=== PATIENT | male | born 1945 ===

== ENCOUNTER 2024-02-04 16:14 | Emergency (ER) | payer MEDICARE ==
[~2024-02-04] VITALS: Ht 182.9 cm; Wt 86.2 kg
[~2024-02-04 16:14] MED LIST: TAMS.4ER PO
[2024-02-04 16:45] VITALS: BP 128/68
== END 2024-02-04 17:14 | disposition home or self-care (01) ==
LOC: ER 16:14
DX: N39.0 Urinary tract infection, site not specified (principal); E86.0 Dehydration; Z96.0 Presence of urogenital implants; Z79.899 Other long term (current) drug therapy
CPT/HCPCS: 51798; 99283-25

== ENCOUNTER 2024-10-14 19:51 | Emergency (ER) | payer MEDICARE ==
[~2024-10-14] VITALS: Ht 182.9 cm; Wt 83.9 kg
[2024-10-14] MEDS ORDERED: DORZOLAMIDE-TIM10 ML BOTHEYES (23:36)
[2024-10-14] MEDS ORDERED: LATANOPROST2.5 M3 BOTHEYES (23:36)
[2024-10-14] MEDS ORDERED: ANASPAZ0.125 MG SL (23:37)
[2024-10-15 02:56] LABS: BASOPHILS ABSOLUTE AUTO 0.02 K/mm3 (0.00-0.23); BASOPHILS PERCENT AUTO 0 % (0-2); EOSINOPHILS ABSOLUTE AUTO 0.01 K/mm3 (0.00-0.68); EOSINOPHILS PERCENT AUTO 0 % (0-6); Hematocrit 33.4 % (37.0-53.0); Hemoglobin 11.6 g/dL (13.5-17.5); IMMATURE GRAN ABSOLUTE AUTO 0.03 K/mm3 (0.00-0.10); IMMATURE GRAN PERCENT AUTO 0 % (0-1); LYMPHOCYTES ABSOLUTE AUTO 0.75 K/mm3 (0.84-5.20); LYMPHOCYTES PERCENT AUTO 11 % (21-46); MONOCYTES ABSOLUTE AUTO 0.73 K/mm3 (0.16-1.47); MONOCYTES PERCENT AUTO 11 % (4-13); Mean Corpuscular HGB 30.7 pg (26.0-34.0); Mean Corpuscular HGB Conc 34.7 g/dL (31.5-36.5); Mean Corpuscular Volume 88 fL (80-100); Mean Platelet Volume 9.7 fL (9.1-12.4); NEUTROPHILS PERCENT AUTO 77 % (41-73); Platelet Count 176 K/mm3 (150-400); RDW Standard Deviation 45.6 fL (35.1-46.3); Red Blood Cell Count 3.78 M/mm3 (4.30-5.90); White Blood Cell Count 6.74 K/mm3 (4.00-11.30)
[2024-10-15 03:17] LABS: Albumin/Globulin Ratio 0.9 (0.8-1.8); Bilirubin, Total 0.3 mg/dL (0.1-1.0); Bun/Creatinine Ratio 20.7 (12.0-20.0); Calcium, Blood 8.4 mg/dL (8.5-10.1); Creatinine, Blood 1.16 mg/dL (0.60-1.20); Globulin, Blood 3.5 g/dL (2.2-4.0); Potassium, Blood 3.8 mmol/L (3.5-5.5); Total Protein, Blood 6.5 g/dL (6.4-8.2)
[2024-10-15 05:27] VITALS: BP 136/82
== END 2024-10-15 05:32 | disposition home or self-care (01) ==
LOC: ER 19:51
PROVIDERS: Emergency Medicine
DX: T83.091A Other mechanical complication of indwelling urethral catheter, initial encounter (principal); Z79.899 Other long term (current) drug therapy
CPT/HCPCS: 51798; 74177; 76857; 80053; 85025; 99284-25; Q9967

== ENCOUNTER 2025-07-30 19:47 | Emergency (ER) | payer MEDICARE ==
[~2025-07-30] VITALS: Ht 182.9 cm; Wt 86.2 kg
[~2025-07-30 19:47] MED LIST changes: +ANASPAZ0.125 MG SL; +DORZOLAMIDE-TIM10 ML BOTHEYES; +LATANOPROST2.5 M3 BOTHEYES
[2025-07-30 21:24] LABS: BASOPHILS ABSOLUTE AUTO 0.09 K/mm3 (0.00-0.23); BASOPHILS PERCENT AUTO 1 % (0-2); EOSINOPHILS ABSOLUTE AUTO 0.18 K/mm3 (0.00-0.68); EOSINOPHILS PERCENT AUTO 1 % (0-6); Hematocrit 38.1 % (37.0-53.0); Hemoglobin 13.0 g/dL (13.5-17.5); IMMATURE GRAN ABSOLUTE AUTO 0.06 K/mm3 (0.00-0.10); IMMATURE GRAN PERCENT AUTO 0 % (0-1); LYMPHOCYTES ABSOLUTE AUTO 1.36 K/mm3 (0.84-5.20); LYMPHOCYTES PERCENT AUTO 9 % (21-46); MONOCYTES ABSOLUTE AUTO 1.49 K/mm3 (0.16-1.47); MONOCYTES PERCENT AUTO 9 % (4-13); Mean Corpuscular HGB Conc 34.1 g/dL (31.5-36.5); Mean Corpuscular Volume 87 fL (80-100); NEUTROPHILS ABSOLUTE AUTO 12.84 K/mm3 (1.96-9.15); NEUTROPHILS PERCENT AUTO 80 % (41-73); NRBC ABSOLUTE 0.00 K/mm3 (0.00-0.02); NRBC Auto 0.0 /100 WBC (0.0-0.2); Platelet Count 293 K/mm3 (150-400); RDW Coefficient Variation 13.7 % (11.7-14.2); RDW Standard Deviation 44.3 fL (35.1-46.3)
[2025-07-30 21:43] LABS: Alanine Aminotransfer (ALT/SGP 19.0 U/L (12-78); Albumin, Blood 3.7 g/dL (3.4-5.0); Albumin/Globulin Ratio 1.2 (0.8-1.8); Anion Gap 8.0 mmol/L (3-11); Aspartate Aminotrans (AST/SGOT 15.0 U/L (12-37); Bilirubin, Total 0.2 mg/dL (0.1-1.0); Blood Urea Nitrogen 11.0 mg/dL (8-24); CO2, Blood 26.0 mmol/L (21-32); Calcium, Blood 9.0 mg/dL (8.5-10.1); Chloride, Blood 106.0 mmol/L (98-108); Creatinine, Blood 1.12 mg/dL (0.60-1.20); Globulin, Blood 3.1 g/dL (2.2-4.0); Glucose, Blood 134.0 mg/dL (70-99); Potassium, Blood 4.1 mmol/L (3.5-5.5); Sodium, Blood 136.0 mmol/L (136-145); Total Protein, Blood 6.8 g/dL (6.4-8.2)
[2025-07-30] MEDS ORDERED: CEFD300 PO (22:36)
[2025-07-30 22:52] LABS: Source, Urine Suprapubic Cath
[2025-07-30 22:58] VITALS: BP 174/85
[2025-07-30 23:00] LABS: Bilirubin, Urine Neg (Neg); Glucose Qualitative, Urine Neg (Neg); Ketones, Urine 1+ (Neg); Leukocyte Esterase, Urine Neg (Neg); Protein, Urine 4+ (Neg); Specific Gravity, Urine 1.010 (1.003-1.022); Urobilinogen, Urine NORM (Normal)
[2025-07-30 23:13] LABS: Color, Urine Red (P-Yellow); Red Blood Cells, Urine TNTC /hpf (0-2)
== END 2025-07-30 22:58 | disposition home or self-care (01) ==
LOC: ER 19:47
PROVIDERS: Emergency Medicine; Student in an Organized Health Care Education/Training Program
DX: R31.9 Hematuria, unspecified (principal); Z93.50 Unspecified cystostomy status; Z79.899 Other long term (current) drug therapy
CPT/HCPCS: 51705; 74176; 80053; 81001; 85025; 87077; 87086; 87186; 99284-25; C2627

== ENCOUNTER 2025-08-01 14:07 | Inpatient (IN) | payer OTHER ==
[~2025-08-01] VITALS: Ht 175.3 cm; Wt 93.0 kg
[~2025-08-01 14:07] MED LIST changes: +CEFD300 PO
[2025-08-01] MEDS ORDERED: FentaNYL Citrate 50 MCG/ML 2 ML Injection IV ONE ×3 (14:30→18:00)
[2025-08-01] MEDS ORDERED: Ondansetron HCl 2 MG / ML 2ML Vial IV ONE (14:30)
[2025-08-01] MEDS ORDERED: Metoclopramide HCl 5MG / ML 2ML Vial IV PRN (17:30)
[2025-08-01] MEDS ORDERED: NS 1,000 ML IV SCH (17:35)
[2025-08-01] MEDS ORDERED: Ondansetron HCl 2 MG / ML 2ML Vial IV PRN (17:35)
[2025-08-01] MEDS ORDERED: OxyCODONE 5 mg/Acetamin 325 mg TABLET PO PRN (17:35)
[2025-08-01] MEDS ORDERED: FLU VACC TS2025(65UP)/MF59C/PF 45 MCG/0.5 ML SYRINGE IM SCH (17:35)
[2025-08-01] MEDS ORDERED: FentaNYL Citrate 50 MCG/ML 2 ML Injection IV PRN (17:40)
[2025-08-01 17:58] LABS: BASOPHILS ABSOLUTE AUTO 0.05 K/mm3 (0.00-0.23); BASOPHILS PERCENT AUTO 0 % (0-2); EOSINOPHILS ABSOLUTE AUTO 0.17 K/mm3 (0.00-0.68); EOSINOPHILS PERCENT AUTO 1 % (0-6); Hematocrit 30.6 % (37.0-53.0); Hemoglobin 10.5 g/dL (13.5-17.5); IMMATURE GRAN ABSOLUTE AUTO 0.18 K/mm3 (0.00-0.10); IMMATURE GRAN PERCENT AUTO 1 % (0-1); LYMPHOCYTES ABSOLUTE AUTO 0.49 K/mm3 (0.84-5.20); LYMPHOCYTES PERCENT AUTO 2 % (21-46); MONOCYTES ABSOLUTE AUTO 1.65 K/mm3 (0.16-1.47); MONOCYTES PERCENT AUTO 8 % (4-13); Mean Corpuscular HGB Conc 34.3 g/dL (31.5-36.5); Mean Corpuscular Volume 88 fL (80-100); NEUTROPHILS ABSOLUTE AUTO 19.16 K/mm3 (1.96-9.15); NEUTROPHILS PERCENT AUTO 88 % (41-73); NRBC ABSOLUTE 0.00 K/mm3 (0.00-0.02); NRBC Auto 0.0 /100 WBC (0.0-0.2); Platelet Count 211 K/mm3 (150-400); RDW Coefficient Variation 14.2 % (11.7-14.2); RDW Standard Deviation 45.2 fL (35.1-46.3)
[2025-08-01] MEDS ORDERED: Ketorolac Tromethamine 30mg Vial IV ONE (18:00)
[2025-08-01 20:00] VITALS: BP 110/49
[2025-08-01 20:35] LABS: Anion Gap 14.0 mmol/L (3-11); Blood Urea Nitrogen 28.0 mg/dL (8-24); CO2, Blood 19.0 mmol/L (21-32); Calcium, Blood 8.7 mg/dL (8.5-10.1); Chloride, Blood 101.0 mmol/L (98-108); Creatinine, Blood 1.73 mg/dL (0.60-1.20); Glucose, Blood 174.0 mg/dL (70-99); Potassium, Blood 4.0 mmol/L (3.5-5.5); Sodium, Blood 130.0 mmol/L (136-145)
[2025-08-01] MEDS ORDERED: TIMDOROPSO BOTHEYES (20:52)
[2025-08-01] MEDS ORDERED: CefTRIAXone Sodium 1,000 MG in NS 100 ML IV SCH (21:00)
[2025-08-01] MEDS ORDERED: Lactobacil 2-S.Thermo-Bifido 1 1 Cap PO SCH (21:00)
[2025-08-02] VITALS (13 sets, daily range): BP systolic 103–134; BP diastolic 48–69
[2025-08-02] MEDS ORDERED: Tranexamic Acid 100 ML IV SCH (07:25)
--- NOTE | 2025-08-02 07:26 | NUR ---
SHIFT SUMMARY; AFTER ADMIT, PATIENT WAS ABLE TO SLEEP IN LONG INTERVALS, REMAINS FORGETFUL. MEDICATED ONLY TWICE FOR PAIN, STATES LONG HE DIDN'T MOVE HIS LEG IT DIDN'T HURT MUCH. SP CATH CD&I. DRAINING HILARIO TO TEA COLORED URINE. HAD TO RESTART HIS IV WHEN IT DISLODGED. 18 MARIELOS/LFA BY LEGAL EXECUTIVE ASSISTANT. NO C/O MUSCLE SPASMS. IV ABX AND NS/75ML/HR. NPO AT MIDNIGHT. NO TELE ORDERED.
[2025-08-02] MEDS ORDERED: NS 1,000 ML IV SCH (08:30)
[2025-08-02] MEDS ORDERED: Polyethylene Glycol 3350 17 gm PO SCH (09:00)
[2025-08-02] MEDS ORDERED: Dorzolamide/Timolol Opth Soln 10 ML BOTHEYES SCH (09:00)
[2025-08-02] MEDS ORDERED: Bupivacaine 0.5% HCl 5 MG/ML 30MLVIAL ONE (13:26)
--- NOTE | 2025-08-02 13:38 | NUR ---
PT HAS 18G IV TO LEFT FOREARM THAT FLUSHES WELL AND FLOWS TO GRAVITY.
[2025-08-02] MEDS ORDERED: CeFAZolin Sodium 2,000 MG in NS 100 ML IV SCH ×2 (13:50→22:00)
[2025-08-02] MEDS ORDERED: Rocuronium Bromide 10 MG/ML 5ML Injection IV ONE (14:18)
[2025-08-02] MEDS ORDERED: FentaNYL Citrate 50 MCG/ML 2 ML Injection ONE (14:18)
[2025-08-02] MEDS ORDERED: ePHEDrine Sulfate 50 MG/ML 1ML Injection ONE (14:46)
[2025-08-02] MEDS ORDERED: FentaNYL Citrate 50 MCG/ML 2 ML Injection IV PRN ×3 (15:20)
[2025-08-02] MEDS ORDERED: Ondansetron HCl 2 MG / ML 2ML Vial IV PRN (15:20)
[2025-08-02] MEDS ORDERED: Phenylephrine HCl 100 MCG/ML-NS 10MLSYR (1MG/10ML) ONE (15:30)
[2025-08-02] MEDS ORDERED: Magnesium Sulfate 500 MG / ML 2ML Vial ONE (15:32)
[2025-08-02] MEDS ORDERED: Sugammadex Sodium 200 MG/2ML SDV (100 MG/ML) ONE (15:37)
[2025-08-02] MEDS ORDERED: Latanoprost 0.005% Opth Soln 2.5 ML BOTHEYES SCH (18:00)
--- NOTE | 2025-08-02 18:06 | NUR ---
SHIFT SUMMARY PT ALERT TO SELF, IS CONFUSED AT TIMES. PT RESTED AWAITING SURGERY THIS MORNING. PT GOT TAKEN TO SURGERY AROUND 1300, PT HAS 3 AQUACEL DRESSINGS ON RIGHT HIP. THE BOTTOM DRESSING HAS A DIME SIZE SHOWING OF DRIED BLOOD AND HAS NOT GROWN ANY LARGER. THE OTHER DRESSINGS ARE C/D/I. POST OP VS WERE STABLE AND IS ON ROOM AIR. PT HAS SUPRAPUBIC CATHETER AND IS DRAINING TO GRAVITY. CALL LIGHT WITHIN REACH OF PT.
--- NOTE | 2025-08-02 20:26 | NUR ---
ASSUMPTION OF CARE: THIS RN ASSUMED CARE OF PATIENT. ASLEEP DURING SHIFT CHANGE REPORT. LYING IN BED c HOB ELEVATED. BREATHIGN EVEN c SNORE c RA. CHRONIC SP CATH PATENT AND DRAINING YELLOW URINE TO GRAVITY. AQUACEL x3 RIGHT LATERAL LEG; MOST DISTAL SLIGHTLY BULGING. DIME-SIZED SHADOWING ON MOST PROXIMAL. NS @ 125mL/hr VIA LFA. BED IN LOWEST POSITION. CALL LIGHT WITHIN REACH. ACUTE NEEDS MET.
[2025-08-03 00:12] VITALS: BP 130/59
[2025-08-03 05:45] VITALS: BP 104/55
--- NOTE | 2025-08-03 06:04 | NUR ---
END OF SHIFT SUMMARY: A&Ox4. PLEASANT AND COOPERATIVE WITH CARE. CALLS APPROPRIATELY AND IS ABLE TO ADVOCATE NEEDS EFFECTIVELY. VSS. BREATHING EVEN AND UNLABORED c RA. CONTINENT OF BOWEL; LBM 08/01/25. CHRONIC SUPRAPUBIC HOBSON PATENT AND DRAINING TEA-COLORED URINE TO GRAVITY. MEDS WHOLE c FLUIDS; NEEDS VERBAL CUES TO NOT CHEW PILLS. HAS NOT AMBULATED POST-OP OF YET. WOKE UP SHORTLY AFTER SHIFT CHANGE c C/O SEVERE PAIN FOR WHICH HE WAS MEDICATED. WOKE UP AGAIN AROUND 0230. PROVIDED c SNACK, PAIN MEDS AND WATER. THREE INCISION SITES RIGHT LATERAL LEG; MOST DISTAL DRESSING FULLY SATURATED AND AQUACEL CHANGED. BED IN LOWEST POSITION, CALL LIGHT WITHIN REACH, ALL NEEDS MET. REPORT TO ONCOMING NURSE.
[2025-08-03 06:09] LABS: BASOPHILS ABSOLUTE AUTO 0.03 K/mm3 (0.00-0.23); BASOPHILS PERCENT AUTO 0 % (0-2); EOSINOPHILS ABSOLUTE AUTO 0.04 K/mm3 (0.00-0.68); EOSINOPHILS PERCENT AUTO 0 % (0-6); Hematocrit 25.1 % (37.0-53.0); Hemoglobin 8.3 g/dL (13.5-17.5); IMMATURE GRAN ABSOLUTE AUTO 0.05 K/mm3 (0.00-0.10); IMMATURE GRAN PERCENT AUTO 1 % (0-1); LYMPHOCYTES ABSOLUTE AUTO 0.79 K/mm3 (0.84-5.20); LYMPHOCYTES PERCENT AUTO 8 % (21-46); MONOCYTES ABSOLUTE AUTO 1.30 K/mm3 (0.16-1.47); MONOCYTES PERCENT AUTO 13 % (4-13); Mean Corpuscular HGB Conc 33.1 g/dL (31.5-36.5); Mean Corpuscular Volume 90 fL (80-100); NEUTROPHILS ABSOLUTE AUTO 8.18 K/mm3 (1.96-9.15); NEUTROPHILS PERCENT AUTO 79 % (41-73); NRBC ABSOLUTE 0.00 K/mm3 (0.00-0.02); NRBC Auto 0.0 /100 WBC (0.0-0.2); Platelet Count 176 K/mm3 (150-400); RDW Coefficient Variation 14.2 % (11.7-14.2); RDW Standard Deviation 46.2 fL (35.1-46.3)
[2025-08-03 06:36] LABS: Anion Gap 7.0 mmol/L (3-11); Blood Urea Nitrogen 30.0 mg/dL (8-24); CO2, Blood 25.0 mmol/L (21-32); Calcium, Blood 7.8 mg/dL (8.5-10.1); Chloride, Blood 106.0 mmol/L (98-108); Creatinine, Blood 1.5 mg/dL (0.60-1.20); Glucose, Blood 136.0 mg/dL (70-99); Magnesium, Blood 2.6 mg/dL (1.6-2.4); Phosphorus, Blood 3.4 mg/dL (2.5-4.9); Potassium, Blood 4.2 mmol/L (3.5-5.5); Sodium, Blood 134.0 mmol/L (136-145)
[2025-08-03 07:11] VITALS: BP 111/51
[2025-08-03] MEDS ORDERED: Enoxaparin 40 MG/0.4 ML SYR SC SCH (09:00)
[2025-08-03] MEDS ORDERED: NS 1,000 ML IV SCH (09:05)
[2025-08-03 14:21] LABS: Hematocrit 24.8 % (37.0-53.0); Hemoglobin 8.1 g/dL (13.5-17.5)
[2025-08-03 15:51] VITALS: BP 121/56
--- NOTE | 2025-08-03 16:54 | NUR ---
SHIFT SUMMARY PATIENT A/OX1-3, DISORIENTED INTERMITTENTLY, CAN BE EASILY AGITATED WHEN DISORIENTED. PRIMARILY PLEASANT AND COOPERATIVE WITH CARE. FAMILY AT BEDSIDE MOST OF SHIFT. PATIENT ABLE TO PARTICIPATE IN PHYSICAL AND OCCUPATIONAL THERAPY TODAY, 2 PERSONA SSIST STAND PIVOT TRANSFER. IV LEAKING TO LEFT FA, NEW IV PLACED TO LEFT FA THIS AM. FENTANYL ADMINISTERED PER MAR FOR PAIN, PATIENT BECAME LETHARGIC AFTER ADMINISTARTION. AQUACEL CHANGED TO DISTAL DRESSING TO RIGHT HIP, HAS BEEN CHANGED TWICE SINCE SURGERY. MODERATE SANGUINOUS DRAINAGE NOTED THIS AM, DRESSING REMAINS CDI THIS EVENING. IV FLUIDS RUNNING PER MAR, RATE CHANGED THIS MORNING. NO OTHER COCNERNS AT THIS TIME, WILL CONTINUE TO MONITOR.
[2025-08-03 20:13] VITALS: BP 119/59
--- NOTE | 2025-08-04 04:14 | NUR ---
pT HAS HAD AN UNEVENTFUL EVENING AND HAS RESTED WELL. AMBULATED FROM CHAIR TO BED WITH 2PA AND A WALKER AT THE BEGINNING OF SHIFT. PT IS STILL CONFUSED AND ALERT AND ORIENTED TO SELF/PERSON. STILL VOIDING PER SUPRAPUBIC CATHETER W/ TEA COLORED URINE.
[2025-08-04 05:56] VITALS: BP 128/62
[2025-08-04 06:36] LABS: BASOPHILS ABSOLUTE AUTO 0.04 K/mm3 (0.00-0.23); BASOPHILS PERCENT AUTO 0 % (0-2); EOSINOPHILS ABSOLUTE AUTO 0.11 K/mm3 (0.00-0.68); EOSINOPHILS PERCENT AUTO 1 % (0-6); Hematocrit 22.7 % (37.0-53.0); Hemoglobin 7.6 g/dL (13.5-17.5); IMMATURE GRAN ABSOLUTE AUTO 0.06 K/mm3 (0.00-0.10); IMMATURE GRAN PERCENT AUTO 1 % (0-1); LYMPHOCYTES ABSOLUTE AUTO 1.01 K/mm3 (0.84-5.20); LYMPHOCYTES PERCENT AUTO 10 % (21-46); MONOCYTES ABSOLUTE AUTO 1.44 K/mm3 (0.16-1.47); MONOCYTES PERCENT AUTO 14 % (4-13); Mean Corpuscular HGB Conc 33.5 g/dL (31.5-36.5); Mean Corpuscular Volume 90 fL (80-100); NEUTROPHILS ABSOLUTE AUTO 7.67 K/mm3 (1.96-9.15); NEUTROPHILS PERCENT AUTO 74 % (41-73); NRBC ABSOLUTE 0.00 K/mm3 (0.00-0.02); NRBC Auto 0.0 /100 WBC (0.0-0.2); Platelet Count 175 K/mm3 (150-400); RDW Coefficient Variation 14.0 % (11.7-14.2); RDW Standard Deviation 46.3 fL (35.1-46.3)
[2025-08-04 07:06] LABS: Anion Gap 6.0 mmol/L (3-11); Blood Urea Nitrogen 29.0 mg/dL (8-24); CO2, Blood 26.0 mmol/L (21-32); Calcium, Blood 7.9 mg/dL (8.5-10.1); Chloride, Blood 106.0 mmol/L (98-108); Creatinine, Blood 1.48 mg/dL (0.60-1.20); Glucose, Blood 123.0 mg/dL (70-99); Magnesium, Blood 2.3 mg/dL (1.6-2.4); Phosphorus, Blood 2.8 mg/dL (2.5-4.9); Potassium, Blood 4.3 mmol/L (3.5-5.5); Sodium, Blood 134.0 mmol/L (136-145)
[2025-08-04 07:32] VITALS: BP 139/66
[2025-08-04] MEDS ORDERED: Docusate Sodium/Senna 1 Tab PO PRN (09:10)
[2025-08-04 13:15] LABS: Hematocrit 24.4 % (37.0-53.0); Hemoglobin 7.9 g/dL (13.5-17.5)
[2025-08-04 15:40] VITALS: BP 124/57
--- NOTE | 2025-08-04 19:36 | NUR ---
SHIFT SUMMARY PATIENT A/OX1-3, PRIMARILY PLEASANT WITH STAFF BUT EASILY AGITATED INTERMITTENTLY. HAVING HALLUCINATIONS THIS AM. PATIENT COMPLAINING OF HIP PAIN, MEDICATED PER DEC. PATIENT BECAME AGITATED THIS EVENING, SEROQUIL ADMINISTERED. PATIENT WITH FAMILY AT BEDSIDE THROUGHOUT [place] SHIFT. ABLE TO GET UP TO THE RECLINER FOR MEALS TODAY, 2 PERSON STAND PIVOT TRANSFER. NO OTHER CONCERNS AT THIS TIME, BEDSIDE SHIFT REPORT COMPLETED WITH PERSONAL LINES INSURANCE AGENT NURSES.
[2025-08-04 20:14] VITALS: BP 157/67
[2025-08-05 03:33] VITALS: BP 134/83
[2025-08-05 05:43] LABS: BASOPHILS ABSOLUTE AUTO 0.05 K/mm3 (0.00-0.23); BASOPHILS PERCENT AUTO 0 % (0-2); EOSINOPHILS ABSOLUTE AUTO 0.22 K/mm3 (0.00-0.68); EOSINOPHILS PERCENT AUTO 2 % (0-6); Hematocrit 22.9 % (37.0-53.0); Hemoglobin 7.6 g/dL (13.5-17.5); IMMATURE GRAN ABSOLUTE AUTO 0.09 K/mm3 (0.00-0.10); IMMATURE GRAN PERCENT AUTO 1 % (0-1); LYMPHOCYTES ABSOLUTE AUTO 1.22 K/mm3 (0.84-5.20); LYMPHOCYTES PERCENT AUTO 10 % (21-46); MONOCYTES ABSOLUTE AUTO 1.60 K/mm3 (0.16-1.47); MONOCYTES PERCENT AUTO 13 % (4-13); Mean Corpuscular HGB Conc 33.2 g/dL (31.5-36.5); Mean Corpuscular Volume 90 fL (80-100); NEUTROPHILS ABSOLUTE AUTO 9.21 K/mm3 (1.96-9.15); NEUTROPHILS PERCENT AUTO 74 % (41-73); NRBC ABSOLUTE 0.00 K/mm3 (0.00-0.02); NRBC Auto 0.0 /100 WBC (0.0-0.2); Platelet Count 203 K/mm3 (150-400); RDW Coefficient Variation 13.8 % (11.7-14.2); RDW Standard Deviation 45.8 fL (35.1-46.3)
--- NOTE | 2025-08-05 06:14 | NUR ---
PT BEGAN SHIFT IN THE RECLINER AND WAS DIFFICULT TO ASSIST INTO THE BED. IV BEGAN TO LEAK AFTER HE EXERTED HIMSELF ONTO THE WALKER. NEW IV PLACED IN RAC. 2X TREATED FOR PAIN WITH OXYCODONE. OTHERWISE RESTING COMFORTABLY. PT REMAINS CONFUSED BUT IS COMPLIANT THOUGH SOMETIMES RELUCTANTLY.
[2025-08-05 06:19] LABS: Anion Gap 7.0 mmol/L (3-11); Blood Urea Nitrogen 24.0 mg/dL (8-24); CO2, Blood 25.0 mmol/L (21-32); Calcium, Blood 8.0 mg/dL (8.5-10.1); Chloride, Blood 106.0 mmol/L (98-108); Creatinine, Blood 1.21 mg/dL (0.60-1.20); Glucose, Blood 133.0 mg/dL (70-99); Magnesium, Blood 2.1 mg/dL (1.6-2.4); Phosphorus, Blood 2.3 mg/dL (2.5-4.9); Potassium, Blood 4.1 mmol/L (3.5-5.5); Sodium, Blood 134.0 mmol/L (136-145)
[2025-08-05] MEDS ORDERED: Sodium Phosphate 15 MM in Dextrose 5% 500 ML IV STA (07:12)
[2025-08-05 07:45] VITALS: BP 153/70
--- NOTE | 2025-08-05 16:23 | NUR ---
SHIFT SUMMARY: A&OX4 WITH SIGNIFICANT BOUTS OF BEING FORGETFUL. OTHERWISE PLEASANT AND COOPERATIVE WITH CARE PROVIDED. PT BECOMING INCREASINGLY AGITATED THE SHIFT CONTINUES, BUT IS REDIRECTABLE. MEDICATED FOR PAIN PER EMAR. ENCOURAGED PT TO SIT UP IN RECLINER CHAIR. PT REQUIRED A 2P STAFF ASSIST. SUPRAPUBIC CATHETER REMAINS PATENT AND IN PLACE, DRAINING TO GRAVITY. DRESSINGS X3 IN PLACE C/D/I. CALL LT WITHIN REACH.
[2025-08-05 16:34] VITALS: BP 120/103
[2025-08-05 19:39] VITALS: BP 140/63
[2025-08-05] MEDS ORDERED: LORazepam 2 MG/ML 1ML Injection IV PRN (19:45)
--- NOTE | 2025-08-05 20:23 | NUR ---
Agitation Patient w/ increased agitation, impulsiveness, and difficutly redirecting. Has dementia at baseline and usually oriented to self and . Tonight, oriented to self and place. IV abx for UTI completed as of this morning. As soon as shift started, patient was already displaying restlessness and being ornery. Reported that patient had just returned to bed, but now, patient is got self to the edge of bed making multiple attempts to get out of bed by self because "this is not my bed". KELLIE Saunders at bedside w/ multiple attempts trying to de-escalate; however, patient is adamant about walking out of the room. Though confused, patient has been redirectable the past couple of nights. Called and got an order for 1mg IV Lorazepam q4h prn for agitation from Larry Rivera NP. Patient did not want to take PO meds at this time so IV med was requested. Patient sleeping at this time. Night PO meds held.
[2025-08-06 02:54] VITALS: BP 142/93
--- NOTE | 2025-08-06 05:58 | NUR ---
PT CONFUSED AND AGITATED AT BEGINNING OF SHIFT 1X DOSE OF 1MG ATIVAN GIVEN, PT RESTED COMFORTABLY FOR THE REST OF THE EVENING. ALERT AND ORIENTED TO PERSON PLACE AND PARTIALLY TO SITUATION THIS AM. NO COMPLAINTS OF PAIN.
[2025-08-06 06:03] LABS: BASOPHILS ABSOLUTE AUTO 0.07 K/mm3 (0.00-0.23); BASOPHILS PERCENT AUTO 1 % (0-2); EOSINOPHILS ABSOLUTE AUTO 0.16 K/mm3 (0.00-0.68); EOSINOPHILS PERCENT AUTO 1 % (0-6); Hematocrit 23.1 % (37.0-53.0); Hemoglobin 7.8 g/dL (13.5-17.5); IMMATURE GRAN ABSOLUTE AUTO 0.08 K/mm3 (0.00-0.10); IMMATURE GRAN PERCENT AUTO 1 % (0-1); LYMPHOCYTES ABSOLUTE AUTO 1.38 K/mm3 (0.84-5.20); LYMPHOCYTES PERCENT AUTO 12 % (21-46); MONOCYTES ABSOLUTE AUTO 1.34 K/mm3 (0.16-1.47); MONOCYTES PERCENT AUTO 11 % (4-13); Mean Corpuscular HGB Conc 33.8 g/dL (31.5-36.5); Mean Corpuscular Volume 88 fL (80-100); NEUTROPHILS ABSOLUTE AUTO 9.00 K/mm3 (1.96-9.15); NEUTROPHILS PERCENT AUTO 75 % (41-73); NRBC ABSOLUTE 0.00 K/mm3 (0.00-0.02); NRBC Auto 0.0 /100 WBC (0.0-0.2); Platelet Count 272 K/mm3 (150-400); RDW Coefficient Variation 13.8 % (11.7-14.2); RDW Standard Deviation 44.1 fL (35.1-46.3)
--- NOTE | 2025-08-06 06:12 | NUR ---
NO bm for [address] Christiano Pardo and got a telephone order to give a one time dose of fleet enema per rectal today because patient have not had a bm since 08/01/25 (6 days) and is taking [id number] narcotics for RLE/R hip pain s/p surgery. Denies abdominal discomfort and nausea, pt is forgetful so unable to remember if he is passing flatus, abdomen is mildly distended and firm (baseline), and bowel tones present in all 4 quads.
[2025-08-06 06:22] LABS: Anion Gap 7.0 mmol/L (3-11); Blood Urea Nitrogen 18.0 mg/dL (8-24); CO2, Blood 26.0 mmol/L (21-32); Calcium, Blood 8.4 mg/dL (8.5-10.1); Chloride, Blood 108.0 mmol/L (98-108); Creatinine, Blood 1.12 mg/dL (0.60-1.20); Glucose, Blood 118.0 mg/dL (70-99); Magnesium, Blood 2.1 mg/dL (1.6-2.4); Phosphorus, Blood 2.9 mg/dL (2.5-4.9); Potassium, Blood 4.2 mmol/L (3.5-5.5); Sodium, Blood 137.0 mmol/L (136-145)
[2025-08-06 07:51] VITALS: BP 180/70
[2025-08-06 17:02] VITALS: BP 139/55
--- NOTE | 2025-08-06 18:35 | NUR ---
NOTE PT VERY [id number] THIS MORNING. GIVEN ORDERED ENEMA. PT SCREAMED AND CUSSED. HE THEN W KEPT TRYING TO CLIMB OOB. ATTEMPTED BED CORONA. NOT HELPFUL. WITH 2 MAX ASSIST AND FWW GAIT BELT. MANAGED TO GET HIM TO THE BS. HE HAD A LARGE BM. THEN HE WANTED TO GET IN THE RECLINER. TRANSFERED HIM WITH 2 MAX ASSIST AND FWW. VERY POOR ABILITY TO FOLLOW DIRECTIONS. WHILE UP, PT STARTED TO SWEAR AND YELL AT HIS . WHILE HELPING HIM BACK TO BED WITH FWW, 2 MAX AND GAIT BELT PT ATTEMPOTED TO BITE THIS NURSE IN THE ARM. MEDICATED WITH ATIVAN X1. VSS. IV PATENT. BED ALRM ON. PT HAS RESTED WELL THROUGH THE AFTERNOON. AT BEDSIDE. SUPRAPUBIC CATHETER PATENT. DRAINING HILARIO CLOUDY URINE. ENCOURAGED TO DRINK. CAREONGOING.
[2025-08-06] MEDS ORDERED: Polyethylene Glycol 3350 17 gm PO SCH (21:00)
[2025-08-06] MEDS ORDERED: NS 500 ML IV ONE (21:26)
--- NOTE | 2025-08-07 04:41 | NUR ---
PT ALERT TO SELF CONFUSED. PT HAS BEEN ANXIOUS AND C/O PAIN IN R HIP. PT HAS TRIED TO GET OOB T/O THE SHIFT AND HAS BEEN HALLUCINATING AND BELIEVING [facility]HW[facility] HOME. PT HAS BEEN REDIRECTABLE. PT PULLED IV WITH TIP INTCAT. DISCUSSED WITH DR. ALLAN. DUE TO PTS INCREASED AGITATION AND INABILITY TO REDIRECT DISCUSSED WITH HOSPTALIST AND ORDERS GIVEN FOR PO ATIVAN. ONCE THIS WAS RECIVED PT SLEPT T/O THE NIGHT AND WAS EASILY AWAKEN.
[2025-08-07 06:34] VITALS: BP 147/54
[2025-08-07 07:09] VITALS: BP 156/67
[2025-08-07] MEDS ORDERED: NS 500 ML IV SCH (07:10)
[2025-08-07 08:09] LABS: BASOPHILS ABSOLUTE AUTO 0.07 K/mm3 (0.00-0.23); BASOPHILS PERCENT AUTO 1 % (0-2); EOSINOPHILS ABSOLUTE AUTO 0.27 K/mm3 (0.00-0.68); EOSINOPHILS PERCENT AUTO 2 % (0-6); Hematocrit 24.1 % (37.0-53.0); Hemoglobin 8.0 g/dL (13.5-17.5); IMMATURE GRAN ABSOLUTE AUTO 0.08 K/mm3 (0.00-0.10); IMMATURE GRAN PERCENT AUTO 1 % (0-1); LYMPHOCYTES ABSOLUTE AUTO 1.57 K/mm3 (0.84-5.20); LYMPHOCYTES PERCENT AUTO 13 % (21-46); MONOCYTES ABSOLUTE AUTO 1.22 K/mm3 (0.16-1.47); MONOCYTES PERCENT AUTO 10 % (4-13); Mean Corpuscular HGB Conc 33.2 g/dL (31.5-36.5); Mean Corpuscular Volume 90 fL (80-100); NEUTROPHILS ABSOLUTE AUTO 8.54 K/mm3 (1.96-9.15); NEUTROPHILS PERCENT AUTO 73 % (41-73); NRBC ABSOLUTE 0.00 K/mm3 (0.00-0.02); NRBC Auto 0.0 /100 WBC (0.0-0.2); Platelet Count 366 K/mm3 (150-400); RDW Coefficient Variation 13.7 % (11.7-14.2); RDW Standard Deviation 45.1 fL (35.1-46.3)
[2025-08-07 08:30] LABS: Anion Gap 7.0 mmol/L (3-11); Blood Urea Nitrogen 16.0 mg/dL (8-24); CO2, Blood 28.0 mmol/L (21-32); Calcium, Blood 8.2 mg/dL (8.5-10.1); Chloride, Blood 108.0 mmol/L (98-108); Creatinine, Blood 1.09 mg/dL (0.60-1.20); Glucose, Blood 107.0 mg/dL (70-99); Magnesium, Blood 2.0 mg/dL (1.6-2.4); Phosphorus, Blood 3.0 mg/dL (2.5-4.9); Potassium, Blood 4.2 mmol/L (3.5-5.5); Sodium, Blood 139.0 mmol/L (136-145)
[2025-08-07 09:51] LABS: SARS-Cov-2 (COVID-19) PCR, MMC NEGATIVE (NEGATIVE)
--- NOTE | 2025-08-07 11:47 | NUR ---
Pt. is awake in bed when he welcomes my visit. Spouse is at bedside. Pt. is known to this spikemaking supervisor from the community. Facilitated an update from the Spouse. Pt. displayed evidence needig to be encouraged to stay with the current rehab plan. Listened with empathy and a calming presence. Pt. verbalized frustration with the limitations he has and and how he wanted to get up and get moving. This spikemaking supervisor normalized the Pt. experience. Prayed with the Pt. and spouse. Both verbalized gratitude for the spiritual care visit and welcomed this spikemaking supervisor to return.
--- NOTE | 2025-08-07 15:47 | NUR ---
CALL TO PROVIDER FAMILY REQ PATIENT NOT RECEIVE PERCOCET ADMINISTRATIONS, REW THAT PAIN MEDS BE CHANGED TO TYLENOL & TRAMADOL, CALL PLACED TO PROVIDER @ 0045.
[2025-08-07 16:06] VITALS: BP 118/47
[2025-08-07 20:13] VITALS: BP 166/60
[2025-08-08 04:44] VITALS: BP 124/64
[2025-08-08 04:45] VITALS: BP 124/64
--- NOTE | 2025-08-08 05:20 | NUR ---
PT A&SHAAN SELF ONLY, HAVING HALLCINATIONS AND CONFUSED PT GETTING OUT OF BED FREQUENTLY TO SHOVEL AND WORK. REDIRECTABLE AT TIMES BUT UNABLE TO REORIENT PT. SEROQUEL WAS NOT EFFECTIVE. DISCUSSED WITH HOSPITALIST AND ATIVAN GIVEN RX. THIS HAS BEEN EFFECT IN RELAXING PATIENT AND DECREASING ANXIETY AND NEED TO WORK SO THAT PATIENT COULD SLEEP. PT ALSO PRIOR TO ATIVAN WAS VERY ANXIOUS REQUESTING TO CALL THE POLICE TO FILE A MISSING PERSON REPORT ABOUT HIS BROTHER. UNABLE TO REORIENT PT THAT HE IS IN THE HOSPITAL. PT APPEARS TO HAVE SUN DOWNERS AND HAVE INCREASED CONFUSION AT NIGHT. PT UNSTEADY ON FEET WHEN GETTING UP. REPORTS PAIN LEVEL HAS BEEN 100/10 PAIN MEDICATION GIVEN RX. PT REPORTS PAIN WHEN LYING DOWN AND MOVING.
[2025-08-08 05:47] LABS: BASOPHILS ABSOLUTE AUTO 0.07 K/mm3 (0.00-0.23); BASOPHILS PERCENT AUTO 1 % (0-2); EOSINOPHILS ABSOLUTE AUTO 0.24 K/mm3 (0.00-0.68); EOSINOPHILS PERCENT AUTO 2 % (0-6); Hematocrit 23.1 % (37.0-53.0); Hemoglobin 7.7 g/dL (13.5-17.5); IMMATURE GRAN ABSOLUTE AUTO 0.09 K/mm3 (0.00-0.10); IMMATURE GRAN PERCENT AUTO 1 % (0-1); LYMPHOCYTES ABSOLUTE AUTO 1.79 K/mm3 (0.84-5.20); LYMPHOCYTES PERCENT AUTO 17 % (21-46); MONOCYTES ABSOLUTE AUTO 1.16 K/mm3 (0.16-1.47); MONOCYTES PERCENT AUTO 11 % (4-13); Mean Corpuscular HGB Conc 33.3 g/dL (31.5-36.5); Mean Corpuscular Volume 89 fL (80-100); NEUTROPHILS ABSOLUTE AUTO 7.27 K/mm3 (1.96-9.15); NEUTROPHILS PERCENT AUTO 68 % (41-73); NRBC ABSOLUTE 0.00 K/mm3 (0.00-0.02); NRBC Auto 0.0 /100 WBC (0.0-0.2); Platelet Count 404 K/mm3 (150-400); RDW Coefficient Variation 13.7 % (11.7-14.2); RDW Standard Deviation 44.3 fL (35.1-46.3)
[2025-08-08 06:22] LABS: Anion Gap 6.0 mmol/L (3-11); Blood Urea Nitrogen 15.0 mg/dL (8-24); CO2, Blood 28.0 mmol/L (21-32); Calcium, Blood 8.3 mg/dL (8.5-10.1); Chloride, Blood 107.0 mmol/L (98-108); Creatinine, Blood 1.04 mg/dL (0.60-1.20); Glucose, Blood 121.0 mg/dL (70-99); Magnesium, Blood 2.0 mg/dL (1.6-2.4); Phosphorus, Blood 3.4 mg/dL (2.5-4.9); Potassium, Blood 3.9 mmol/L (3.5-5.5); Sodium, Blood 137.0 mmol/L (136-145)
[2025-08-08 07:28] VITALS: BP 154/54
[2025-08-08 11:42] LABS: Ferritin, Serum 118.0 ng/mL (26-388); Total Iron Binding Capacity 213.0 ug/dL (250-450)
[2025-08-08] MEDS ORDERED: ACET325 PO (12:20)
[2025-08-08] MEDS ORDERED: ENOX40I SC (12:22)
[2025-08-08] MEDS ORDERED: MIRALAX17 GM PO (12:23)
[2025-08-08] MEDS ORDERED: QUETIAPINE FUMA50 M2 PO ×2 (12:23→12:24)
[2025-08-08] MEDS ORDERED: SULTRIDS PO (12:25)
[2025-08-08] MEDS ORDERED: VISBIOME 112.51 EACH PO (12:25)
[2025-08-08] MEDS ORDERED: TRAM50 PO (12:25)
--- NOTE | 2025-08-08 13:29 | NUR ---
DISCHARGE NOTE [facility] IV TAKEN OUT, REPORT GIVEN TO [facility] , DISCHARGE INFORMATION EDUCATED TO FAMILY AND PATIENT. NO DISTRESS NOTED.
== END 2025-08-08 13:17 | DRG 478 ==
LOC: ER 14:07 → MEDS 17:29
PROVIDERS: Internal Medicine; Nurse Practitioner Acute Care; Orthopaedic Surgery; ADMIT Student in an Organized Health Care Education/Training Program
PROC: 0T2BX0Z Change Drainage Device in Bladder, External Approach (ICD-10-PCS; 2025-08-01)
PROC: 0QH634Z Insertion of Internal Fixation Device into Right Upper Femur, Percutaneous Approach (ICD-10-PCS; 2025-08-02)
PROC: 0QB60ZX Excision of Right Upper Femur, Open Approach, Diagnostic (ICD-10-PCS; principal; 2025-08-02 14:00)
DX: S72.141A Displaced intertrochanteric fracture of right femur, initial encounter for closed fracture (principal); D62 Acute posthemorrhagic anemia; F03.911 Unspecified dementia, unspecified severity, with agitation; N39.0 Urinary tract infection, site not specified; N17.9 Acute kidney failure, unspecified; N40.0 Benign prostatic hyperplasia without lower urinary tract symptoms; Z98.890 Other specified postprocedural states; K59.00 Constipation, unspecified; D64.89 Other specified anemias; Z79.899 Other long term (current) drug therapy; R41.81 Age-related cognitive decline; N18.9 Chronic kidney disease, unspecified; W01.0XXA Fall on same level from slipping, tripping and stumbling without subsequent striking against object, initial encounter
CPT/HCPCS: 36415; 70450; 73502; 73552; 80048; 82728; 82947; 83540; 83550; 83735; 84100; 85014; 85018; 85025; 88305; 88342; 93005; 93010; 96374; 96375; 97110; 97162; 97165; 97530; 99285-25; A9270; C1713; C1769; J0690; J0696; J1650; J1885; J2060; J2371; J2405; J2704; J3010; J3475; J7030; J7040; J7060; J7120; U0002

== ENCOUNTER 2025-09-08 08:41 | Emergency (ER) | payer OTHER ==
[~2025-09-08] VITALS: Ht 182.9 cm; Wt 81.7 kg
[~2025-09-08 08:41] MED LIST changes: +ACET325 PO; +ENOX40I SC; +MIRALAX17 GM PO; +QUETIAPINE FUMA50 M2 PO; +SULTRIDS PO; +TIMDOROPSO BOTHEYES; +TRAM50 PO; +VISBIOME 112.51 EACH PO
[2025-09-08 12:22] VITALS: BP 173/59
== END 2025-09-08 12:52 | disposition home or self-care (01) ==
LOC: ER 08:41
DX: I10 Essential (primary) hypertension (principal); Z79.899 Other long term (current) drug therapy
CPT/HCPCS: 70450; 99284-25; A9270

== ENCOUNTER 2025-10-03 22:17 | Emergency (ER) | payer OTHER ==
[~2025-10-03] VITALS: Ht 182.9 cm; Wt 86.2 kg
[2025-10-03 23:00] LABS: BASOPHILS ABSOLUTE AUTO 0.06 K/mm3 (0.00-0.23); BASOPHILS PERCENT AUTO 0 % (0-2); EOSINOPHILS ABSOLUTE AUTO 0.24 K/mm3 (0.00-0.68); EOSINOPHILS PERCENT AUTO 1 % (0-6); Hematocrit 30.1 % (37.0-53.0); Hemoglobin 10.0 g/dL (13.5-17.5); IMMATURE GRAN ABSOLUTE AUTO 0.10 K/mm3 (0.00-0.10); IMMATURE GRAN PERCENT AUTO 1 % (0-1); LYMPHOCYTES ABSOLUTE AUTO 2.44 K/mm3 (0.84-5.20); LYMPHOCYTES PERCENT AUTO 13 % (21-46); MONOCYTES ABSOLUTE AUTO 1.56 K/mm3 (0.16-1.47); MONOCYTES PERCENT AUTO 8 % (4-13); Mean Corpuscular HGB Conc 33.2 g/dL (31.5-36.5); Mean Corpuscular Volume 90 fL (80-100); NEUTROPHILS ABSOLUTE AUTO 14.19 K/mm3 (1.96-9.15); NEUTROPHILS PERCENT AUTO 76 % (41-73); NRBC ABSOLUTE 0.00 K/mm3 (0.00-0.02); NRBC Auto 0.0 /100 WBC (0.0-0.2); Platelet Count 261 K/mm3 (150-400); RDW Coefficient Variation 14.6 % (11.7-14.2); RDW Standard Deviation 47.8 fL (35.1-46.3)
[2025-10-03 23:20] LABS: Alanine Aminotransfer (ALT/SGP 17.0 U/L (12-78); Albumin, Blood 3.6 g/dL (3.4-5.0); Albumin/Globulin Ratio 1.0 (0.8-1.8); Anion Gap 9.0 mmol/L (3-11); Aspartate Aminotrans (AST/SGOT 14.0 U/L (12-37); Bilirubin, Total 0.2 mg/dL (0.1-1.0); Blood Urea Nitrogen 29.0 mg/dL (8-24); CO2, Blood 27.0 mmol/L (21-32); Calcium, Blood 8.9 mg/dL (8.5-10.1); Chloride, Blood 95.0 mmol/L (98-108); Creatinine, Blood 1.27 mg/dL (0.60-1.20); Globulin, Blood 3.5 g/dL (2.2-4.0); Glucose, Blood 122.0 mg/dL (70-99); Potassium, Blood 4.0 mmol/L (3.5-5.5); Sodium, Blood 127.0 mmol/L (136-145); Total Protein, Blood 7.1 g/dL (6.4-8.2)
[2025-10-04] MEDS ORDERED: NS 1,000 ML IV SCH (03:15)
[2025-10-04 06:00] VITALS: BP 110/47
== END 2025-10-04 06:25 | disposition home or self-care (01) ==
LOC: ER 22:17
PROVIDERS: Emergency Medicine
DX: E86.0 Dehydration (principal); E87.1 Hypo-osmolality and hyponatremia; I95.9 Hypotension, unspecified; Z79.01 Long term (current) use of anticoagulants; Z79.899 Other long term (current) drug therapy; Z96.0 Presence of urogenital implants; Z59.89 Other problems related to housing and economic circumstances
CPT/HCPCS: 80053; 85025; 93005; 93010; 96360; 99285-25; J7030